=== PATIENT | female | born 1975 | race Asian ===

== ENCOUNTER 2024-08-23 23:00 | Emergency (ER) | payer OTHER, SELFPAY ==
[2024-08-23 23:03] VITALS: BP 159/92
[2024-08-24 00:59] VITALS: BMI 40.1
--- NOTE | 2024-08-24 01:05 | EDRN ---
Pt with L side posterior headache all day that has been dull with occasional sharp pains. Pt notes pain in her L ear and earlobe. Pt took 162mg aspirin around [id number] for headache. Pt was swishing water in her mouth getting ready for bed and
says the water came out of her mouth 'I felt like I had novocaine on one side of my mouth (left) like there was baking soda in there.' Pt adds she started panicking which caused her to get very hot. Pt feels tingling in the L side of her tongue
and the L corner of her lips. Pt denies photophobia, rash, swallowing difficulty, speech/visual disturbance, dizziness, ambulatory dysfunction, numbness, weakness, cp, sob, abd pain, n/v.
[2024-08-24 01:15] VITALS: BP 120/72
--- NOTE | 2024-08-24 02:19 | ED.GENMED ---
History of Present Illness
General
Chief Complaint: Headache
Source: patient
Time Seen by Provider: 08/24/24 02:12
History of Present Illness
History of Present Illness:
48-year-old female presents to the emergency room complaining of headache, left ear pain as well as noticing water not staying in the left side of her mouth while she was brushing her teeth. Patient also noted that her toothpaste tasted more like
baking soda. Patient has not had any known tick exposures. She denies any focal weakness numbness or tingling in her upper or lower extremities.
Past History
Past History
ED Past Medical History: Hypercholesterolemia, IDDM and Hypothyroidism
ED Past Surgical History: and Gynecological (Scar tissues removed from Uterus)
Social History
Tobacco: Former smoker
Alcohol: None
Personal:
Living: with family
Phy Exam
Physical Exam
Physical Exam:
General: Awake, Alert, Oriented X3. No acute distress.
Vitals: unremarkable
Head: Atraumatic
Eyes: Pupils equal, EOMI
Throat: Airway intact, no exudates
Neck: Trachea midline
Lungs: Clear and equal b/l
Heart: Regular rate, no murmurs
Abd: Soft, Nontender, No pulsatile mass
Neuro: Subtle left facial droop noted. Left eyelid seems to be slightly weaker. Forehead on left seems slightly weak.
Skin: Warm, dry, no rash
Extremities: pulses equal b/l, no edema
Course
Orders/Labs/Results
Orders:
Orders
08/24/24 01:20
CT Head W/o Iv Contrast Urgent
Comment:
Reason For Exam: L posterior QUINONES/L ear pain, tingling L tongue/lips
08/24/24 02:22
Prednisone [Deltasone] 60 mg PO NOW STA
Valacyclovir HCl [Valtrex] 1,000 mg PO NOW STA
08/24/24 02:28
Lyme Progressive Urgent
Vital Signs
Initial and Last Documented VS:
Initial Vital Signs
Temp Pulse Resp BP Pulse Ox
98.8 F 87 18 159/92 100
08/23/24 23:03 08/23/24 23:03 08/23/24 23:03 08/23/24 23:03 08/23/24 23:03
Last Documented Vital Signs
Temp Pulse Resp BP Pulse Ox
98.8 F 78 14 120/72 98
08/23/24 23:03 08/24/24 01:15 08/24/24 01:15 08/24/24 01:15 08/24/24 02:20
MDM/Problems Addressed
Differential Diagnosis Includes:
Tension headache, migraine, Johnson's palsy, CVA
MDM/Problems Addressed:
Patient presents with left ear pain, mild headache, sensation in her left face has had a shot of Novocain. Patient also noted difficulty holding fluids and brushing her teeth. Overall her physical exam appears suggestive of Johnson's palsy. She has
mild weakness of the forehead and eyelid as well as the lower face. CT shows no acute abnormality. Will start her on a course of prednisone, antiviral medication. Lyme titer sent
*Radiology
Radiology exam reviewed: radiology read reviewed
*Pulse Oximetry
SaO2: 98
Oxygen Mode of Delivery: Room air
Patient hypoxic: no
*Critical Care Note
Total Time (30-74mins, 75-104mins- exclusive of procedures): Not Applicable
ED Attending Note
-
Portions of this chart may have been created with voice recognition software.� Occasional wrong word or��sound alike� substitutions may have occurred due to the inherent limitations of voice recognition software.
Discharge Plan
Departure
Patient Disposition: Home (Routine Discharge)
Date of Disposition: 08/24/24
Time of Disposition: 03:17
Patient with high blood pressure during this ER visit?: No
Condition: Good
Discharge Problem:
Johnson's palsy
Instructions: Johnson's palsy, Johnson's Palsy Exercises
Prescriptions:
New
prednisone 50 mg tablet
50 mg PO DAILY Qty: 5 0RF
valacyclovir [Valtrex] 1 gram tablet
1,000 mg PO TID 7 Days Qty: 21 0RF
No Action
levothyroxine 75 MCG tablet
75 mcg PO DAILY
insulin lispro [Humalog KwikPen Insulin] 100 UNIT/ML insulin pen
0 units SC MEALS
Patient Comments:
sliding scale before meals
atorvastatin 10 mg Tablet
10 mg PO QPM
metformin 500 mg Tablet Extended Release 24 Hr
1,000 mg PO DAILY
escitalopram oxalate 5 mg Tablet
5 mg PO DAILY
dapagliflozin propanediol [Farxiga] 10 mg Tablet
10 mg PO DAILY
insulin glargine U-300 conc [Toujeo SoloStar U-300 Insulin] 300 unit/mL (1.5 mL) Insulin Pen
42 unit SC HS
Ozempic 1 mg/dose (4 mg/3 mL) Pen Injector
1 mg SC QWEEK
Referrals:
Racquel Gotti CRNP [Family Provider, Family Practice]
Activity Restrictions/Additional Instructions:
Carefully monitor your blood sugar while taking the steroids
Interventions
Interventions:
*Risk Screen - Suicide Last Done: 08/23/24 23:03
*General Assessment Last Done: 08/23/24 23:03
*Neglect/Abuse Screening Last Done: 08/23/24 23:03
*ED- Fall Risk Assessment Last Done: 08/24/24 00:59
ED- Neurological Assessment Last Done: 08/24/24 00:59
Discharge Date and Time
Print Language: PASHTO
[2024-08-24] MEDS: VALTREX 1000 MG PO (02:26)
[2024-08-24] MEDS: DELTASONE 60 MG PO (02:26)
[2024-08-24 04:20] VITALS: BP 109/60
[2024-08-26 14:02] LABS: Lyme Antibody Screen, EIA Equivocal (Negative)
== END 2024-08-24 04:30 | disposition home or self-care (01) ==
LOC: EMR 23:00
PROVIDERS: EMERGENCY PHYSICIAN Emergency Medicine; FAMILY PHYSICIAN Nurse Practitioner Family
DX: G51.0 Bell's palsy (principal); E78.00 Pure hypercholesterolemia, unspecified; E11.9 Type 2 diabetes mellitus without complications; E03.9 Hypothyroidism, unspecified; Z87.891 Personal history of nicotine dependence
CPT/HCPCS: 99284; 70450; 86617; 86618